=== PATIENT | male | born 1995 | race African-American/Black ===

== ENCOUNTER 2018-08-04 21:41 | Emergency (ER) | payer SELFPAY ==
[~2018-08-04] VITALS: Ht 182.9 cm; Wt 103.1 kg
[2018-08-04 22:07] VITALS: BP 140/66; PULSE 91; RESP 18; Ht 182.9 cm; Wt 103.1 kg
[2018-08-05] MEDS ORDERED: BACI28.34 TOP (00:39)
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
== END 2018-08-05 01:37 | disposition home or self-care (01) ==
LOC: FTE 21:41
DX: S61.431A Puncture wound without foreign body of right hand, initial encounter (principal); X99.8XXA Assault by other sharp object, initial encounter
CPT/HCPCS: 99282